=== PATIENT | male | born 1945 | race Two or more races ===

== ENCOUNTER 2018-04-09 06:16 | Inpatient (IN) | payer OTHER ==
[~2018-04-09] VITALS: Ht 175.3 cm; Wt 67.0 kg
[2018-04-09 07:01] VITALS: BP 160/88
[2018-04-09 09:37] LABS: BASOPHIL % 0.3 % (0-2); PLATELET COUNT 170 x10^3mcL (130-400)
[2018-04-09 09:39] LABS: RED CELL DISTRIBUTION WIDTH 16.5 % (11.5-14.5)
[2018-04-09 10:05] VITALS: BP 197/109
[2018-04-09 10:23] LABS: ALBUMIN 3.6 g/dL (3.4-5.0); ALKALINE PHOSPHATASE 115 U/L (46-116); ALT/SGPT 44 U/L (16-63); AST/SGOT 29 U/L (15-37); BILIRUBIN TOTAL 1.04 mg/dL (0.20-1.00); CALCIUM 8.3 mg/dL (8.5-10.1); CARBON DIOXIDE 26.5 mmol/L (21-32); CHLORIDE SERUM 105 mmol/L (98-107); CREATININE SERUM 1.2 mg/dL (0.7-1.3); GLUCOSE SERUM 148 mg/dL (74-106); MAGNESIUM 2.2 mg/dL (1.8-2.4); POTASSIUM SERUM 3.1 mmol/L (3.5-5.1); SODIUM SERUM 144 mmol/L (136-145); TOTAL PROTEIN, SERUM 7.1 g/dL (6.4-8.2)
[2018-04-09] MEDS ORDERED: ASPIRIN325 MG PO (11:02)
[2018-04-09] MEDS ORDERED: METOPROLOL TART25 M1 PO (11:02)
[2018-04-09] MEDS ORDERED: PLAVIX75 M1 PO (11:03)
[2018-04-09] MEDS ORDERED: ZOCOR40 MG PO (11:03)
[2018-04-09] MEDS ORDERED: PEPCID20 MG PO (11:03)
[2018-04-09] MEDS ORDERED: COLACE100 MG PO (11:04)
[2018-04-09] MEDS ORDERED: MULTI-VITAMINS1 TAB PO (11:05)
[2018-04-09] MEDS ORDERED: LOSARTAN POTASS25 M1 PO (11:21)
[2018-04-09] MEDS ORDERED: FINASTERIDE5 M1 PO (11:21)
[2018-04-09] MEDS ORDERED: ISOSORBIDE MONO60 MG PO (11:22)
[2018-04-09] MEDS ORDERED: HYDRALAZINE HCL25 MG PO (11:22)
[2018-04-09] MEDS ORDERED: FLOMAX0.4 MG PO (11:22)
[2018-04-09] MEDS ORDERED: DICLOFENAC SODI75 MG PO (11:23)
[2018-04-09 12:51] VITALS: BP 197/109
[2018-04-09 15:27] VITALS: BP 130/72
[2018-04-09 19:30] VITALS: BP 153/55
[2018-04-09 23:14] VITALS: BP 134/73
[2018-04-10 03:27] VITALS: BP 101/41
[2018-04-10 05:46] LABS: ALKALINE PHOSPHATASE 90 U/L (46-116); ALT/SGPT 37 U/L (16-63); AST/SGOT 24 U/L (15-37); BILIRUBIN TOTAL 0.65 mg/dL (0.20-1.00); CALCIUM 7.8 mg/dL (8.5-10.1); CARBON DIOXIDE 26.7 mmol/L (21-32); CHLORIDE SERUM 103 mmol/L (98-107); CHOLESTEROL 160 mg/dL (<200); CHOLESTEROL/HDL RATIO 3.1; CREATININE SERUM 1.4 mg/dL (0.7-1.3); GLUCOSE SERUM 259 mg/dL (74-106); HDL CHOLESTEROL 51 mg/dL (40-60); POTASSIUM SERUM 3.5 mmol/L (3.5-5.1); SODIUM SERUM 141 mmol/L (136-145); TRIGLYCERIDES 34 mg/dL (<150)
[2018-04-10 05:47] LABS: BASOPHIL % 0 % (0-2); PLATELET COUNT 169 x10^3mcL (130-400); RED CELL DISTRIBUTION WIDTH 16.2 % (11.5-14.5)
[2018-04-10 05:51] LABS: TOTAL PROTEIN, SERUM 5.6 g/dL (6.4-8.2)
[2018-04-10 07:19] VITALS: BP 100/57
[2018-04-10 08:22] VITALS: Ht 175.3 cm; Wt 67.0 kg
[2018-04-10 11:12] VITALS: BP 136/62
[2018-04-10 13:30] VITALS: BP 128/51
[2018-04-10 18:25] VITALS: BP 130/52
[2018-04-10 20:32] VITALS: BP 123/60
[2018-04-11 05:23] VITALS: BP 134/62
[2018-04-11 05:44] LABS: PLATELET COUNT 179 x10^3mcL (130-400)
[2018-04-11 06:17] LABS: CALCIUM 7.7 mg/dL (8.5-10.1); CARBON DIOXIDE 28.4 mmol/L (21-32); CHLORIDE SERUM 105 mmol/L (98-107); CREATININE SERUM 1.3 mg/dL (0.7-1.3); GLUCOSE SERUM 141 mg/dL (74-106); POTASSIUM SERUM 3.3 mmol/L (3.5-5.1); SODIUM SERUM 142 mmol/L (136-145)
[2018-04-11 06:35] LABS: BASOPHIL % 0 % (0-2); RED CELL DISTRIBUTION WIDTH 16.5 % (11.5-14.5)
[2018-04-11 08:44] VITALS: BP 131/71
[2018-04-11 14:00] VITALS: BP 160/67
[2018-04-11 18:04] VITALS: BP 162/82
[2018-04-11 18:25] VITALS: BP 158/75
[2018-04-11 20:31] VITALS: BP 155/76
[2018-04-12 05:33] VITALS: BP 157/79
[2018-04-12 07:38] LABS: BASOPHIL % 0.2 % (0-2); PLATELET COUNT 175 x10^3mcL (130-400)
[2018-04-12 07:39] LABS: RED CELL DISTRIBUTION WIDTH 16.8 % (11.5-14.5)
[2018-04-12 08:08] LABS: CHLORIDE SERUM 104 mmol/L (98-107); CREATININE SERUM 1.2 mg/dL (0.7-1.3); GLUCOSE SERUM 90 mg/dL (74-106); POTASSIUM SERUM 3.4 mmol/L (3.5-5.1); SODIUM SERUM 139 mmol/L (136-145)
[2018-04-12 10:11] VITALS: BP 167/78
[2018-04-12 11:02] VITALS: BP 132/69
[2018-04-12 11:03] VITALS: BP 132/69
== END 2018-04-12 12:00 | disposition home or self-care (01) | DRG 280 ==
LOC: DS 06:16 → OR 07:30 → EDBD 07:30 → GI 07:30 → DU 08:17 → IC 08:17 → DU 04-10 13:35
PROVIDERS: Internal Medicine Pulmonary Disease
DX: I21.4 Non-ST elevation (NSTEMI) myocardial infarction (principal); J96.00 Acute respiratory failure, unspecified whether with hypoxia or hypercapnia; I50.43 Acute on chronic combined systolic (congestive) and diastolic (congestive) heart failure; E87.2 Acidosis; J44.9 Chronic obstructive pulmonary disease, unspecified; I35.1 Nonrheumatic aortic (valve) insufficiency; I34.0 Nonrheumatic mitral (valve) insufficiency; I10 Essential (primary) hypertension; I27.20 Pulmonary hypertension, unspecified; E78.5 Hyperlipidemia, unspecified; Z95.0 Presence of cardiac pacemaker; Z68.21 Body mass index [BMI] 21.0-21.9, adult; Z95.1 Presence of aortocoronary bypass graft; I25.10 Atherosclerotic heart disease of native coronary artery without angina pectoris
CPT/HCPCS: 36600; 83880; 90658; 90732; J0360; J1200; J1610; J1650; J1940; J2060; J2250; J2310; J2920; J3010; J3480; J3490; J7620; Q0092; Q0169